=== PATIENT | female | born 1985 | race African-American/Black ===

== ENCOUNTER 2017-02-11 15:35 | Emergency (ER) | payer SELFPAY ==
[~2017-02-11] VITALS: Ht 177.8 cm; Wt 105.0 kg
[~2017-02-11 15:35] MED LIST: NAPR500 PO; OMEP20CA5 PO; ONDA4TAB7 PO
[2017-02-11 15:36] VITALS: BP 121/78; PULSE 104; RESP 18; TEMP 98.4; O2SAT 99
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
[2017-02-11] MEDS ORDERED: KETOROLAC TROMETHAMINE 60 MG/2 ML (IM) VIAL IM ONE (16:45)
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
[2017-02-11 17:16] VITALS: BP 120/76; TEMP 97.8
== END 2017-02-11 17:16 | disposition home or self-care (01) ==
LOC: NEPD 15:35
DX: R07.81 Pleurodynia (principal); Y04.0XXA Assault by unarmed brawl or fight, initial encounter
CPT/HCPCS: 71111; 84703; 96372; 99284; J1885

== ENCOUNTER 2017-02-23 01:41 | Emergency (ER) | payer OTHER ==
[~2017-02-23] VITALS: Ht 177.8 cm; Wt 103.0 kg
[2017-02-23 01:48] VITALS: BP 119/72; PULSE 69; RESP 18; TEMP 98.3; O2SAT 99
[2017-02-23] MEDS ORDERED: ROBA750T PO (02:04)
[2017-02-23] MEDS ORDERED: MOBI15TA PO (02:04)
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
[2017-02-23] MEDS ORDERED: IBUPROFEN 600 MG TAB PO ONE (02:15)
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
== END 2017-02-23 02:19 | disposition home or self-care (01) ==
LOC: PHED 01:41
DX: S39.012A Strain of muscle, fascia and tendon of lower back, initial encounter (principal); V89.2XXA Person injured in unspecified motor-vehicle accident, traffic, initial encounter
CPT/HCPCS: 72100; 84703; 99284